=== PATIENT | female | born 1990 | race American Indian/Alaskan Native ===

== ENCOUNTER 2019-05-11 14:11 | Emergency (ER) | payer MEDICAID, OTHER ==
--- NOTE | 2019-05-11 14:44 | Event Note ---
ED Screening Note Date of service: 05/11/19 Time: 14:42 ED Screening Note: 28 y o female presents with blood in urine with left sided flank pain and pelvic pain x 1 week This initial assessment/diagnostic orders/clinical plan/treatment(s) is/are subject to change based on patients health status, clinical progression and re- assessment by fellow clinical providers in the ED. Further treatment and workup at subsequent clinical providers discretion. Patient/guardian urged not to elope from the ED as their condition may be serious if not clinically assessed and managed. Initial orders include: ua/upt
--- NOTE | 2019-05-11 15:38 | Emergency Department Report ---
ED Female HPI - General Chief complaint: Urogenital-Female Stated complaint: BLOOD IN URINE/LOWER BACK PAIN Time Seen by Provider: 05/11/19 14:41 Source: patient Mode of arrival: Ambulatory Limitations: No Limitations - History of Present Illness Initial comments: This is a 28-year-old -[place] female who presents to the emergency room with hematuria and low back pain for 5-7 days. She also reported flank pain and vaginal discharge. Last menstrual period was 04/27/2019, A3. Patient reports having a physical at work and was informed that the hematuria and to follow-up with primary care doctor. Patient states she went to a wellness clinic one month ago and was diagnosed with a urinary tract infection. She completed antibiotics as prescribed and symptoms improved until recently. MD Complaint: vaginal discharge Onset/Timin -: days(s) Location: suprapubic Radiation: L flank Severity: moderate Severity scale (0 -10): 7 Quality: aching Consistency: intermittent Improves with: none Worsens with: none Are you Now?: No Last Menstrual Period: 04/27/19 EDC: 02/01/20 Associated Symptoms: vaginal discharge, abdominal pain, hematuria. denies: vaginal bleeding, nausea/vomiting, fever/chills, headaches, loss of appetite, dysuria, rash, seizure, shortness of breath, syncope, weakness - Related Data Sexually active: Yes : 8 Para: 5 A: 3 (2 miscarriages and one ) Previous Rx's Medication Instructions Recorded Last Taken Type metroNIDAZOLE [Flagyl TAB] 500 mg PO Q12HR #14 tab 05/11/19 Unknown Rx Allergies Allergy/AdvReac Type Severity Reaction Status Date / Time amoxicillin Allergy Unknown Verified 05/11/19 14:14 Penicillins Allergy Unknown Verified 05/11/19 14:14 ED Review of Systems ROS: Stated complaint: BLOOD IN URINE/LOWER BACK PAIN Other details as noted in HPI Constitutional: denies: chills, fever Respiratory: denies: cough, shortness of breath, wheezing Cardiovascular: denies: chest pain, palpitations Gastrointestinal: abdominal pain. denies: nausea, diarrhea Genitourinary: discharge. denies: urgency, dysuria Musculoskeletal: back pain (left flank). denies: joint swelling, arthralgia Skin: denies: rash, lesions Neurological: denies: headache, weakness, paresthesias Psychiatric: denies: anxiety, depression ED Past Medical Hx - Past Medical History Previous Medical History?: Yes - Social History Smoking Status: Never Smoker Substance Use Type: None - Medications Home Medications: Home Medications Medication Instructions Recorded Confirmed Last Taken Type metroNIDAZOLE [Flagyl TAB] 500 mg PO Q12HR #14 tab 05/11/19 Unknown Rx ED Physical Exam - General Limitations: No Limitations ED Course Vital Signs 05/11/19 14:42 Temperature 98.3 F Pulse Rate 89 Respiratory 16 Rate Blood Pressure 101/66 O2 Sat by Pulse 97 Oximetry ED Medical Decision Making - Lab Data Lab Results 05/11/19 Range/Units 15:04 Urine Color Straw (Yellow) Urine Turbidity Clear (Clear) Urine pH 6.0 (5.0-7.0) Ur Specific Welcome 1.010 (1.003-1.030) Urine Protein <15 mg/dl (Negative) mg/dL Urine Glucose (UA) Neg (Negative) mg/dL Urine Ketones Neg (Negative) mg/dL Urine Blood Mod (Negative) Urine Nitrite Neg (Negative) Urine Bilirubin Neg (Negative) Urine Urobilinogen < 2.0 (<2.0) mg/dL Ur Leukocyte Esterase Neg (Negative) Urine WBC (Auto) < 1.0 (0.0-6.0) /HPF Urine RBC (Auto) < 1.0 (0.0-6.0) /HPF U Epithel Cells (Auto) 1.0 (0-13.0) /HPF Urine HCG, Qual Negative (Negative) - Radiology Data Radiology results: report reviewed US pelvic complete, US transvaginal INDICATION / CLINICAL INFORMATION: pelvic pain and abnormal vag bleeding. COMPARISON: None available. FINDINGS: Uterus measures 8.6 cm. Myometrial echogenicity is normal. The endometrial stripe thickness is 5 mm. Right ovary measures 2.4 x 2.4 cm. A 9 mm right ovarian cyst is noted. The left ovary measures 3.2 x 2.8 cm. Multiple small cysts are identified, the largest measures 1.7 cm. No fluid collections are seen in the cul-de-sac. Doppler imaging shows normal ovarian blood flow. IMPRESSION: 1. Small bilateral ovarian cysts. 2. No evidence of ovarian torsion. - Medical Decision Making Patient was examined by me. Vitals are stable and in no acute distress. Obtained a urinalysis, urine test, wet prep, gonorrhea and chlamydia. test is unremarkable. Urinalysis with moderate blood. Wet prep positive for clue sales, negative Trichomonas and knees. A pelvic ultrasound and transvaginal some pain with the following findings 1. Small bilateral ovarian cysts. 2. No evidence of ovarian torsion. Metronidazole for bacterial vaginitis. Referral to gynecology for follow-up. Discharged home in stable condition. Critical care attestation.: If time is entered above; I have spent that time in minutes in the direct care of this critically ill patient, excluding procedure time. ED Disposition Clinical Impression: Left flank pain, Vaginal discharge Hematuria Qualifiers: Hematuria type: benign essential microscopic Qualified Code(s): R31.1 - Benign essential microscopic hematuria Ovarian cyst Qualifiers: Laterality: bilateral Qualified Code(s): N83.201 - Unspecified ovarian cyst, right side; N83.202 - Unspecified ovarian cyst, left side Disposition: TO HOME OR SELFCARE Is pt being admited?: No Does the pt Need Aspirin: No Condition: Stable Instructions: Ovarian Cyst (ED), Bacterial Vaginosis (ED) Additional Instructions: Complete full course of antibiotics as prescribed. Avoid drinking alcohol and taking antibiotics appropriate for 24 hours of completion. Follow-up with an [facility] from the referral list below. Prescriptions: metroNIDAZOLE [Flagyl TAB] 500 mg PO Q12HR #14 tab Referrals: [facility] [Provider Group] - 3-5 Days [facility] [Provider Group] - 3-5 Days [facility] [Provider Group] - 3-5 Days Forms: Work/School Release Form(ED) Time of Disposition: 19:00
[2019-05-11 15:42] LABS: Bilirubin,Urine NEG (Negative); Color,Urine Straw (Yellow); Protein,Urine <15 mg/dL mg/dL (Negative); RBC,Urine < 1.0 /HPF (0.0-6.0); Urobilinogen,Urine < 2.0 mg/dL (<2.0); WBC,Urine < 1.0 /HPF (0.0-6.0)
[2019-05-11 15:54] LABS: Blood,Urine MOD (Negative); HCG Qualitative,Urine Negative (Negative)
--- NOTE | 2019-05-11 18:30 | Ultrasound Report ---
US pelvic complete, US transvaginal INDICATION / CLINICAL INFORMATION: pelvic pain and abnormal vag bleeding. COMPARISON: None available. FINDINGS: Uterus measures 8.6 cm. Myometrial echogenicity is normal. The endometrial stripe thickness is 5 mm. Right ovary measures 2.4 x 2.4 cm. A 9 mm right ovarian cyst is noted. The left ovary measures 3.2 x 2.8 cm. Multiple small cysts are identified, the largest measures 1.7 cm. No fluid collections are seen in the cul-de-sac. Doppler imaging shows normal ovarian blood flow. IMPRESSION: 1. Small bilateral ovarian cysts. 2. No evidence of ovarian torsion. Signer Name: Carlos Vaca MD Signed: 05/11/2019 6:25 PM Workstation Name: [id number]
[2019-05-11 19:25] VITALS: BP 105/72
== END 2019-05-11 19:25 | disposition home or self-care (01) ==
LOC: ED 14:11
DX: N83.201 Unspecified ovarian cyst, right side (principal); N83.202 Unspecified ovarian cyst, left side
CPT/HCPCS: 76830; 76856; 81001; 81025; 87210; 87591

== ENCOUNTER 2019-09-25 13:47 | Emergency (ER) | payer MEDICAID ==
--- NOTE | 2019-09-25 14:07 | Event Note ---
ED Screening Note Date of service: 09/25/19 Time: 14:04 ED Screening Note: This is a 29 y.o. F. that presents to the ER with pelvic pain radiating to back, vomiting, and chills since this morning. LMP 08/31/2019 This initial assessment/diagnostic orders/clinical plan/treatment(s) is/are subject to change based on patients health status, clinical progression and re- assessment by fellow clinical providers in the ED. Further treatment and workup at subsequent clinical providers discretion. Patient/guardian urged not to elope from the ED as their condition may be serious if not clinically assessed and managed. Initial orders include: Labs
[2019-09-25] MEDS ORDERED: MORPHINE 4 MG/1 ML INJ IV ONE (14:32)
[2019-09-25] MEDS ORDERED: ONDANSETRON 4 MG/2 ML INJ IV ONE (14:32)
--- NOTE | 2019-09-25 14:34 | Emergency Department Report ---
ED Back Pain/Injury HPI - General Chief Complaint: Upper Respiratory Infection Stated Complaint: CHEST TIGHT/BACK/PELVIC PAIN Time Seen by Provider: 09/25/19 14:04 Source: patient Limitations: No Limitations - History of Present Illness Initial Comments: Marlon is a healthy 29-year-old female with past medical past medical history who presents with pelvic painback pain nausea vomiting for 1-2 days. At this time severe vomiting is concerned. She does not know she is or not. +while milky vaginal discharge. Denies fever. MD Complaint: back pain -: Gradual, days(s) (2) Place: home Radiation: groin Severity: moderate Quality: dull Consistency: constant Improves With: none Worsens With: none Context: unknown Associated Symptoms: fever/chills, abdominal pain, nausea/vomiting - Related Data Previous Rx's Medication Instructions Recorded Last Taken Type metroNIDAZOLE [Flagyl TAB] 500 mg PO Q12HR #14 tab 05/11/19 Unknown Rx Doxycycline Hyclate 100 mg PO BID 14 Days #28 tab 09/25/19 Unknown Rx HYDROcodone/APAP 5-325 [[place] 1 each PO Q6HR PRN #10 tablet 09/25/19 Unknown Rx 5/325] Ibuprofen [Motrin 800 MG tab] 800 mg PO Q8HR PRN #10 tablet 09/25/19 Unknown Rx Allergies Allergy/AdvReac Type Severity Reaction Status Date / Time amoxicillin Allergy Unknown Verified 05/11/19 14:14 Penicillins Allergy Unknown Verified 05/11/19 14:14 ED Review of Systems ROS: Stated complaint: CHEST TIGHT/BACK/PELVIC PAIN Other details as noted in HPI Comment: All other systems reviewed and negative Constitutional: chills, fever, malaise Gastrointestinal: abdominal pain, nausea, vomiting Musculoskeletal: back pain ED Past Medical Hx - Past Medical History Previous Medical History?: No - Surgical History Past Surgical History?: Yes Additional Surgical History: tonsilectomy - Social History Smoking Status: Never Smoker Substance Use Type: Alcohol - Medications Home Medications: Home Medications Medication Instructions Recorded Confirmed Last Taken Type metroNIDAZOLE [Flagyl TAB] 500 mg PO Q12HR #14 tab 05/11/19 Unknown Rx Doxycycline Hyclate 100 mg PO BID 14 Days #28 tab 09/25/19 Unknown Rx HYDROcodone/APAP 5-325 [[place] 1 each PO Q6HR PRN #10 tablet 09/25/19 Unknown Rx 5/325] Ibuprofen [Motrin 800 MG tab] 800 mg PO Q8HR PRN #10 tablet 09/25/19 Unknown Rx ED Physical Exam - General Limitations: No Limitations General appearance: alert, other (appears clammy, actively retching) - Head Head exam: Present: atraumatic, normocephalic - Eye Eye exam: Present: normal appearance. Absent: scleral icterus, conjunctival injection - ENT ENT exam: Present: mucous membranes moist - Neck Neck exam: Present: normal inspection, full ROM - Respiratory Respiratory exam: Present: normal lung sounds bilaterally. Absent: respiratory distress, wheezes, rales, rhonchi - Cardiovascular Cardiovascular Exam: Present: regular rate, normal rhythm, normal heart sounds. Absent: systolic murmur, diastolic murmur, rubs, gallop - GI/Abdominal GI/Abdominal exam: Present: soft, normal bowel sounds. Absent: distended, tenderness, guarding, rebound - Extremities Exam Extremities exam: Present: normal inspection - Neurological Exam Neurological exam: Present: alert, oriented X3 - Psychiatric Psychiatric exam: Present: normal affect, normal mood - Skin Skin exam: Present: warm, dry, intact, normal color. Absent: rash ED Course Vital Signs 09/25/19 14:04 Temperature 98.6 F Pulse Rate 110 H Respiratory 16 Rate Blood Pressure 102/84 [Left] O2 Sat by Pulse 99 Oximetry ED Medical Decision Making - Lab Data Result diagrams: 09/25/19 14:31 09/25/19 14:31 Laboratory Results - last 24 hr 09/25/19 09/25/19 09/25/19 14:31 14:31 14:31 WBC 10.4 RBC 4.88 Hgb 14.4 H Hct 43.1 H MCV 88 MCH 30 MCHC 34 RDW 13.8 Plt Count 247 Lymph % (Auto) 12.3 L [place] % (Auto) 3.6 Eos % (Auto) 0.1 Baso % (Auto) 0.1 Lymph # 1.3 [place] # 0.4 Eos # 0.0 Baso # 0.0 Seg Neutrophils % 83.9 H Seg Neutrophils # 8.7 H Sodium 139 Potassium 4.1 Chloride 104.4 Carbon Dioxide 22 Anion Gap 17 BUN 14 Creatinine 0.7 Estimated GFR > 60 BUN/Creatinine Ratio 20 Glucose 122 H Calcium 9.2 Total Bilirubin 0.60 AST 19 ALT 12 Alkaline Phosphatase 39 Total Protein 7.8 Albumin 4.3 Albumin/Globulin Ratio 1.2 Lipase 24 HCG, Qual Negative - Medical Decision Making Initally obtaining hx of was difficulty due to severe pain. Once pain was controlled, I was able to obtain a thorough hx of bilateral pelvic pain with white milky discharge. Will treated for PID. Due to penicillin allergy, azithromycin given. Prescribed doxycyline for 14 days. rx: ibuprofen, norco given referral to [facility] negative. From presentation, I do not suspect ovarian torsion. Ovarian cyst is a consideration. Critical care attestation.: If time is entered above; I have spent that time in minutes in the direct care of this critically ill patient, excluding procedure time. ED Disposition Clinical Impression: Acute PID (pelvic inflammatory disease) Disposition: TO HOME OR SELFCARE Is pt being admited?: No Does the pt Need Aspirin: No Condition: Stable Instructions: Pelvic Inflammatory Disease (ED) Prescriptions: Doxycycline Hyclate 100 mg PO BID 14 Days #28 tab Ibuprofen [Motrin 800 MG tab] 800 mg PO Q8HR PRN #10 tablet PRN Reason: Pain , Severe (7-10) HYDROcodone/APAP 5-325 [[place] 5/325] 1 each PO Q6HR PRN #10 tablet PRN Reason: Pain Referrals: MONI MARTINEZ MD [Staff Physician] - 3-5 Days [facility] [Outside] - 3-5 Days
[2019-09-25 14:56] LABS: Basophils % (Auto) 0.1 % (0.0-1.8); Eosinophils % (Auto) 0.1 % (0.0-4.3); Hematocrit 43.1 % (30.3-42.9); Hemoglobin 14.4 gm/dl (10.1-14.3); Lymphocytes # (Auto) 1.3 K/mm3 (1.2-5.4); Lymphocytes % (Auto) 12.3 % (13.4-35.0); Mean Corpuscular HGB Conc 34 % (30-34); Mean Corpuscular Volume 88 fl (79-97); Monocytes # (Auto) 0.4 K/mm3 (0.0-0.8); Monocytes % (Auto) 3.6 % (0.0-7.3); Platelet Count 247 K/mm3 (140-440); Red Blood Count 4.88 M/mm3 (3.65-5.03); Red Cell Distribution Width 13.8 % (13.2-15.2)
[2019-09-25 15:15] LABS: Alanine Aminotransferase 12 units/L (7-56); Albumin 4.3 g/dL (3.9-5); BUN/Creatinine Ratio 20; Blood Urea Nitrogen 14 mg/dL (7-17); Calcium 9.2 mg/dL (8.4-10.2); Hemolysis Index 18
[2019-09-25] MEDS ORDERED: HYDROcodone/ACETAMINOPHEN 5-325 MG TAB PO ONE (16:45)
[2019-09-25] MEDS ORDERED: AZITHROMYCIN 250 MG TAB PO ONE (17:02)
[2019-09-25 18:17] VITALS: BP 92/65
[2019-09-25] MEDS ORDERED: ONDANSETRON 4 MG ODT TAB PO ONE (18:27)
== END 2019-09-25 18:22 | disposition home or self-care (01) ==
LOC: ED 13:47
DX: N73.0 Acute parametritis and pelvic cellulitis (principal); Z98.890 Other specified postprocedural states; Z79.1 Long term (current) use of non-steroidal anti-inflammatories (NSAID); Z79.899 Other long term (current) drug therapy; Z88.0 Allergy status to penicillin; Z88.1 Allergy status to other antibiotic agents
CPT/HCPCS: 36415; 80053; 83690; 84703; 85025; 96374; 96375; 99283; J2270; J2405; Q0162